=== PATIENT | female | born 2000 | race African-American/Black ===

== ENCOUNTER → 2021-05-17 | Emergency (ER) | payer MEDICAID, OTHER ==
[~2021-05-17] VITALS: Ht 160 cm; Wt 59.9 kg
[~2021-05-17] MED LIST: KETOROLAC TROMETH 60MG/2ML VIAL IM ONE
[2021-05-17 03:42] VITALS: BP 151/122
== END | disposition home or self-care (01) ==
LOC: ER 01:25
DX: S46.912A Strain of unspecified muscle, fascia and tendon at shoulder and upper arm level, left arm, initial encounter (principal); I10 Essential (primary) hypertension; W51.XXXA Accidental striking against or bumped into by another person, initial encounter; Y93.89 Activity, other specified; Y92.89 Other specified places as the place of occurrence of the external cause; Y99.8 Other external cause status
CPT/HCPCS: 73030; 73080; 96372; 99284; J1885